=== PATIENT | male | born 1945 | race Caucasian/White ===

== ENCOUNTER 2019-03-26 12:45 | Inpatient (IN) ==
[2019-03-26] MEDS ORDERED: guaiFENesin/DM ER 600-30 MG TABLET PO PRN (12:47)
[2019-03-26] MEDS ORDERED: POTASSIUM CHLORIDE 20 MEQ TABLET PO PRN (12:47)
[2019-03-26] MEDS ORDERED: LACTULOSE 20 GM/30 ML UDCUP PO PRN (12:47)
[2019-03-26] MEDS ORDERED: MAGNESIUM SULF RIDER 4 GM in PREMIX 1 EACH IV PRN (12:47)
[2019-03-26] MEDS ORDERED: PROMETHAZINE 25 MG TABLET PO PRN (12:47)
[2019-03-26] MEDS ORDERED: MAGNESIUM SULF RIDER 2 GM in PREMIX 1 EACH IV PRN (12:47)
[2019-03-26] MEDS ORDERED: MORPHINE 4 MG/1 ML VIAL IV PRN (12:47)
[2019-03-26] MEDS ORDERED: ACETAMINOPHEN 325 MG TABLET PO PRN (12:47)
[2019-03-26] MEDS ORDERED: ONDANSETRON 4 MG/2 ML VIAL IV PRN (12:47)
[2019-03-26 14:48] LABS: Basophils % 0.4 % (0.0-0.8); Eosinophils # 0.1 10*3/uL (0.0-0.87); Eosinophils % 1.7 % (0.00-10.9); Hemoglobin 15.2 GM/DL (14.0-18.0); Immature Granulocytes % 0.2 %; Immature Granulocytes Absolute 0.01 #; Lymphocytes # 1.4 10*3/uL (1.4-4.0); Lymphocytes % 26.4 % (21.2-54.2); Mean Corpuscular HGB Conc 33.8 GM/DL (32-36); Mean Corpuscular Volume 94.5 FL (87-102); Mean Platelet Volume 10.7 FL (9.6-12.0); Monocytes % 11.4 % (1.7-12.7); Neutrophils % 59.9 % (38.7-73.9); Platelet Count 224 T/CUMM (130-400); Red Blood Count 4.76 MC/CUMM (3.8-5.5); Red Cell Distribution Width 12.8 % (9.3-17.3); White Blood Count 5.2 T/CUMM (4-12)
[2019-03-26 15:13] LABS: Troponin I < 0.015 NG/ML (0.00-0.045)
[2019-03-26 15:20] LABS: Albumin 3.9 G/DL (3.4-5.0); Bilirubin,Total 0.6 MG/DL (0.2-1.0); Calcium 9.1 MG/DL (8.5-10.1); Thyroid Stimulating Hormone 1.98 uIU/ml (0.358-3.74); Total Protein 6.9 G/DL (6.4-8.3)
[2019-03-26 17:23] LABS: Troponin I < 0.015 NG/ML (0.00-0.045)
[2019-03-26 20:19] LABS: Troponin I < 0.015 NG/ML (0.00-0.045)
[2019-03-27 05:47] LABS: Basophils % 0.6 % (0.0-0.8); Eosinophils # 0.1 10*3/uL (0.0-0.87); Hemoglobin 14.5 GM/DL (14.0-18.0); Immature Granulocytes % 0.2 %; Immature Granulocytes Absolute 0.01 #; Lymphocytes # 1.6 10*3/uL (1.4-4.0); Lymphocytes % 30.8 % (21.2-54.2); Mean Corpuscular HGB Conc 33.7 GM/DL (32-36); Mean Corpuscular Volume 93.3 FL (87-102); Mean Platelet Volume 11.3 FL (9.6-12.0); Monocytes % 10.9 % (1.7-12.7); Neutrophils % 55.5 % (38.7-73.9); Platelet Count 211 T/CUMM (130-400); Red Blood Count 4.61 MC/CUMM (3.8-5.5); Red Cell Distribution Width 12.8 % (9.3-17.3)
[2019-03-27] MEDS ORDERED: ceFAZolin 1,000 MG in SYRINGE 1 EACH IV ONE (06:00)
[2019-03-27] MEDS ORDERED: ceFAZolin 1,000 MG VIAL IRRIG ONE (06:00)
[2019-03-27 06:07] LABS: Calcium 8.9 MG/DL (8.5-10.1); Osmolality,Calculated 281.3 MOS/KG (273-304)
[2019-03-27] MEDS ORDERED: HEPARIN/NACL 0.9% 2 UNITS/ML 500 ML IV ONE (10:39)
[2019-03-27] MEDS ORDERED: LIDOCAINE 1% 20 ML VIAL ONE (10:39)
[2019-03-27] MEDS ORDERED: TISSUE ADHESIVE 1 EACH APPLICATOR TOP ONE (10:39)
[2019-03-27] MEDS ORDERED: ZALEPLON 5 MG CAPSULE PO PRN (12:28)
[2019-03-27] MEDS ORDERED: NITROGLYCERIN SL 0.4 MG TABLET SL PRN (12:29)
[2019-03-27] MEDS ORDERED: propofoL 200 MG/20 ML VIAL IV ONE ×2 (12:45→12:50)
[2019-03-27] MEDS ORDERED: fentaNYL 100 MCG/2 ML VIAL ONE (12:46)
[2019-03-27] MEDS ORDERED: MIDAZOLAM 2 MG/2 ML VIAL ONE (12:46)
[2019-03-27] MEDS ORDERED: SODIUM CHLORIDE 0.9% 250 ML IV ONE (12:47)
[2019-03-27] MEDS ORDERED: ETOMIDATE 40 MG/20 ML VIAL IV ONE (12:47)
[2019-03-27] MEDS: SIMVASTATIN 20 MG TABLET PO SCH (13:14)
[2019-03-27] MEDS: POTASSIUM CHLORIDE 20 MEQ TABLET PO SCH (13:14)
[2019-03-27] MEDS: PANTOPRAZOLE 40 MG TABLET PO SCH (13:14)
[2019-03-27] MEDS: ISOSORBIDE MONONITRATE 60 MG TABLET PO SCH (13:14)
[2019-03-27] MEDS: LOSARTAN 25 MG TABLET PO SCH (13:14)
[2019-03-27] MEDS: CLOPIDOGREL 75 MG TABLET PO SCH (13:14)
[2019-03-27] MEDS: FUROSEMIDE 40 MG TABLET PO SCH (13:14)
[2019-03-27] MEDS: ASPIRIN CHEW 81 MG TABLET PO SCH (13:14)
[2019-03-27] MEDS: DORZOLAMIDE/TIMOLOL OPH SOLN 10 ML BOTTLE BOTH EYES SCH ×2 (13:15→21:34)
[2019-03-27] MEDS: ceFAZolin 1,000 MG in SYRINGE 1 EACH IV SCH (18:33)
[2019-03-27] MEDS ORDERED: LATANOPROST 0.005% OPH SOLN 2.5 ML BOTTLE BOTH EYES SCH (21:00)
[2019-03-27] MEDS: RANOLAZINE 500 MG TABLET PO SCH (21:34)
[2019-03-28] MEDS: ceFAZolin 1,000 MG in SYRINGE 1 EACH IV SCH (02:30)
[2019-03-28 06:05] LABS: Basophils % 0.3 % (0.0-0.8); Eosinophils # 0.1 10*3/uL (0.0-0.87); Hematocrit 45.3 VOL% (42.0-52.0); Hemoglobin 15.4 GM/DL (14.0-18.0); Immature Granulocytes % 0.1 %; Immature Granulocytes Absolute 0.01 #; Lymphocytes # 1.4 10*3/uL (1.4-4.0); Lymphocytes % 19.7 % (21.2-54.2); Mean Corpuscular Volume 92.8 FL (87-102); Mean Platelet Volume 11.2 FL (9.6-12.0); Monocytes % 10.5 % (1.7-12.7); Neutrophils % 67.4 % (38.7-73.9); Platelet Count 187 T/CUMM (130-400); Red Blood Count 4.88 MC/CUMM (3.8-5.5); Red Cell Distribution Width 12.6 % (9.3-17.3)
[2019-03-28 06:23] LABS: Osmolality,Calculated 277.4 MOS/KG (273-304)
[2019-03-28] MEDS ORDERED: METOPROLOL SUCCINATE XL 25 MG TABLET PO SCH (09:00)
[2019-03-28] MEDS: ISOSORBIDE MONONITRATE 60 MG TABLET PO SCH (09:24)
[2019-03-28] MEDS: RANOLAZINE 500 MG TABLET PO SCH (09:24)
[2019-03-28] MEDS: PANTOPRAZOLE 40 MG TABLET PO SCH (09:25)
[2019-03-28] MEDS: POTASSIUM CHLORIDE 20 MEQ TABLET PO SCH (09:25)
[2019-03-28] MEDS: SIMVASTATIN 20 MG TABLET PO SCH (09:26)
[2019-03-28] MEDS: FUROSEMIDE 40 MG TABLET PO SCH (09:26)
[2019-03-28] MEDS: CLOPIDOGREL 75 MG TABLET PO SCH (09:26)
[2019-03-28] MEDS: ASPIRIN CHEW 81 MG TABLET PO SCH (09:27)
[2019-03-28] MEDS: LOSARTAN 25 MG TABLET PO SCH (09:27)
[2019-03-28] MEDS: DORZOLAMIDE/TIMOLOL OPH SOLN 10 ML BOTTLE BOTH EYES SCH (09:27)
[2019-03-28 13:21] VITALS: BP 154/82
== END 2019-03-28 13:12 | disposition home or self-care (01) ==
LOC: N.TELES 13:42
PROVIDERS: ADMIT Internal Medicine Cardiovascular Disease; ATTEND Internal Medicine Cardiovascular Disease